=== PATIENT | male | born 1985 | race African-American/Black ===

== ENCOUNTER 2021-06-12 15:50 | Emergency (ER) | payer SELFPAY ==
[~2021-06-12] VITALS: Ht 180.3 cm; Wt 90.7 kg
[2021-06-12] MEDS ORDERED: ACYC-108 PO (18:01)
[2021-06-12 18:50] VITALS: BP 132/85
--- NOTE | 2021-06-12 18:51 | NUR ---
Patient discharged to home in stable condition. Rx,Written and verbal after care instructions given. Patient verbalizes understanding of instruction.IV removed. Catheter intact and site benign. Pressure and 4x4 applied to site. No bleeding noted.
== END 2021-06-12 18:52 | disposition home or self-care (01) ==
LOC: ER 15:56
DX: S00.9 Superficial injury of unspecified part of head (principal); B02.9 Zoster without complications; Z60.2 Problems related to living alone; X58.XXXA Exposure to other specified factors, initial encounter; Y93.89 Activity, other specified; Y92.89 Other specified places as the place of occurrence of the external cause; Y99.8 Other external cause status

== ENCOUNTER 2021-06-14 15:27 | Emergency (ER) | payer SELFPAY ==
[~2021-06-14] VITALS: Ht 180.3 cm; Wt 90.7 kg
[~2021-06-14 15:27] MED LIST: ACYC-108 PO
[2021-06-14 15:36] VITALS: BP 135/79
== END 2021-06-14 15:54 | disposition home or self-care (01) ==
LOC: ER 15:29
DX: B02.9 Zoster without complications (principal); Z60.2 Problems related to living alone